=== PATIENT | female | born 1980 | race Caucasian/White ===

== ENCOUNTER → 2024-11-07 15:30 | Outpatient (CLI) | payer OTHER, SELFPAY ==
--- NOTE | 2024-11-07 15:36 | DI.MRI.S_ITS ---
PROCEDURE: MR LUMBAR SPINE WO CON INDICATIONS: LOWER BACK PAIN TECHNIQUE: Noncontrast sagittal T1 spin echo and T2 fast echo, sagittal STIR, and T2 fast spin echo through the lumbar spine. In cases with scoliosis, additional coronal T2 fast spin echo may be performed. COMPARISON: None. FINDINGS: Image quality: Excellent. Alignment and Curvature: There is normal bony alignment. Bone Marrow: There is significant disc space narrowing with disc desiccation at L4-L5 and L5-S1, with Modic type 2 reactive endplate changes at L4-L5. No suspicious areas of bone marrow signal abnormality seen. Spinal Cord: Conus medullaris terminates at the T12 level. Visualized cord demonstrates normal signal and size. Paraspinous Soft Tissues: No paravertebral masses. T12-L1: Normal appearance. L1-L2: Normal appearance. L2-L3: Normal appearance. L3-L4: There is bilateral facet arthropathy and mild ligamentum flavum thickening, without spinal stenosis. There is also mild disc bulge. L4-L5: There is disc bulge as well as bilateral facet arthropathy, with facet joint effusion as well as mild ligamentum flavum thickening. There is mild central spinal stenosis as well as mild bilateral lateral recess and foraminal stenosis. L5-S1: There is a left central disc extrusion with inferior migration to pedicular level. This measures 1 cm in craniocaudal extent as well as 1 x 1 cm in transverse diameter. There is moderate central spinal stenosis as well as severe left lateral recess stenosis, with mass effect on the descending left S1 root. There is also bilateral facet arthropathy with mild to moderate left foraminal stenosis. IMPRESSION: 1. There is disc extrusion at L5-S1 as described, with significant left lateral spinal stenosis as well as moderate central spinal stenosis. There is also possible component of epidural hemorrhage at this level. 2. Degenerative changes most prominent at L4-L5 with mild central and bilateral lateral spinal stenosis at this level. Dictated by: Taqueria Miranda M.D. on 11/07/2024 at 21:35 Approved by: Taqueria Miranda M.D. on 11/07/2024 at 21:44
== END ==
PROVIDERS: PCP Family Medicine; Referring Provider Family Medicine; Visit Provider Family Medicine
DX: M51.17 Intervertebral disc disorders with radiculopathy, lumbosacral region (principal); M48.07 Spinal stenosis, lumbosacral region; M47.26 Other spondylosis with radiculopathy, lumbar region; M48.061 Spinal stenosis, lumbar region without neurogenic claudication; G89.29 Other chronic pain
CPT/HCPCS: 72148